=== PATIENT | male | born 1965 | race African-American/Black ===

== ENCOUNTER 2018-09-26 20:17 | Inpatient (IN) | payer SELFPAY ==
--- NOTE | 2018-09-27 03:06 | ED Physician Chart ---
ED Chief Complaint/HPI - Patient Information Date Seen:: 09/26/18 Time Seen:: 21:01 Chief Complaint:: colostomy bag off History of Present Illness:: patient is homeless. someone called an ambulance since his colostomy bag isoff. Allergies:: Allergies Allergy/AdvReac Type Severity Reaction Status Date / Time vancomycin Allergy Verified 09/26/18 20:30 Vitals:: Vital Signs - 8 hr 09/26/18 21:01 Temp 98.7 F HR 104 RR 18 BP 123/50 O2 Sat % 98 Historian:: Patient, EMS Review:: Nurse's Note Reviewed ED Review of Systems - Review of Systems General/Constitutional: No fever, No chills, No weight loss, No weakness, No diaphoresis, No edema, No loss of appetite Skin: No skin lesions, No rash, No bruising Head: No headache, No light-headedness Eyes: No loss of vision, No pain, No diplopia ENT: No earache, No nasal drainage, No sore throat, No tinnitus Neck: No neck pain, No swelling, No thyromegaly, No stiffness, No mass noted Cardio Vascular: No chest pain, No palpitations, No PND, No orthopnea, No edema Pulmonary: No SOB, No cough, No sputum, No wheezing GI: No nausea, No vomiting, No pain, No melena, No hematochezia, No constipation , No hematemesis, Other (colostomy bag is off) G/U: No dysuria, No frequency, No hematuria Musculoskeletal: No bone or joint pain, No back pain, No muscle pain Endocrine: No polyuria, No polydipsia Psychiatric: No prior psych history, No depression, No anxiety, No suicidal ideation Hematopoietic: No bruising, No lymphadenopathy Allergic/Immuno: No urticaria, No angioedema Neurological: No syncope, No focal symptoms, No weakness, No paresthesia, No headache, No seizure, No dizziness, No confusion, No vertigo ED Past Medical History - Past Medical History Obtainable: No Surgical History: other (multiple flaps to cover sacral decubitis. BLE amputations) Family Medical History - Family Member Mother History Unknown: Yes ED Physical Exam - Physical Examination General/Constitutional: Awake, Well-developed, well-nourished, Alert, No distress, Non-toxic appearing, Ambulatory Head: Atraumatic ENMT: External ears, nose nl Other ENMT comments:: edentulous Neck: Nontender, No nuchal rigidity, No stridor Respiratory: Nl effort/Exclusion, Clear to Auscultation, No Wheeze/Rhonchi/Rales Cardio Vascular: RRR, No murmur, gallop, rubs, NL S1 S2 Other Extremities comments:: right BLE amputation: necrotic skin present with slight serous discharge. LLE stump intact skin. Neuro/Psych: Alert/oriented Other Neuro/Psych comments:: patient appears to be tweaking on amphetamines. ED Assessment - Assessment General Assessment: patient is sleeping comfortably. did not allow us to draw blood from him. will attempt blood draw later on. sign out is given to Dr. Fortune at 7 a.m. who wanted me to admit the patient as a Vincent Joshi. According to admitting, this is not able to be done. The patient will remain in the ER until further notice. ED Septic Shock - . Is Septic Shock (SBP<90, OR Lactate>4 mmol\L) present?: No - <6hrs of presentation: Vital Signs: Vital Signs - 8 hr 09/26/18 21:01 Temp 98.7 F HR 104 RR 18 BP 123/50 O2 Sat % 98 ED Reassessment (Disposition) - Reassessment Reassessment Condition:: Improved - Diagnosis Diagnosis:: Diverting colostomy, bag intact after it fell off (s/p multiple decubitii). Urinary tract infection. Dehydration RLE stump wound with necrotic skin and serous discharge. Amphetamine usage. - Patient Disposition Condition at Disposition:: Stable, Improved
[2018-09-27] MEDS ORDERED: Lactated Ringer 1,000 ML IV ONE (03:38)
[2018-09-27 03:53] LABS: % EOSINOPHILS 5.3 % (0.0-5.0); % LYMPHOCYTES 18.5 % (20.0-50.0); % MONOCYTES 5.7 % (2.0-10.0); % NEUTROPHILS 70.5 % (40.0-80.0); EOSINOPHILE ABSOLUTE 0.4 Th/cmm (0.1-0.4); HEMATOCRIT 35.7 % (41.0-60); LYMPHOCYTE ABSOLUTE 1.4 Th/cmm (1.5-3.0); MEAN CELL VOLUME 84.7 fl (80-99); MEAN CORPUSCULAR HEMOGLOBIN 28.4 pg (26.0-30.0); MEAN CORPUSCULAR HGB CONC 33.5 pg (28.0-36.0); MEAN PLATELET VOLUME 8.9 fl; MONOCYTE ABSOLUTE 0.4 Th/cmm (0.3-1.0); NEUTROPHILE ABSOLUTE 5.6 Th/cmm (1.8-8.0); PLATELET COUNT 311 Th/cmm (150-400); RED BLOOD COUNT 4.22 Mil/cmm (4.30-5.70); RED CELL DISTRIBUTION WIDTH 14.9 % (11.5-20.0); WHITE BLOOD COUNT 7.8 Th/cmm (4.8-10.8)
[2018-09-27 04:07] LABS: URINE SOURCE CLEAN C
[2018-09-27 04:13] LABS: URINE BILIRUBIN NEGATIVE (NEGATIVE); URINE BLOOD TRACE (NEGATIVE); URINE GLUCOSE (UA) NEGATIVE (NEGATIVE); URINE KETONE NEGATIVE (NEGATIVE); URINE LEUKOCYTE ESTERASE SMALL (NEGATIVE); URINE MICROSCOPIC INDICATED? YES; URINE NITRATE NEGATIVE (NEGATIVE); URINE PROTEIN TRACE mg/dL (NEGATIVE); URINE UROBILINOGEN 0.2 E.U./dL (0.2 - 1.0)
[2018-09-27 04:22] LABS: AMPHETAMINE URINE POSITIVE (NEGATIVE); BARBITURATES URINE NEGATIVE (NEGATIVE); BENZODIAZEPINES QUAL URINE POSITIVE (NEGATIVE); CANNABINOID THC NEGATIVE (NEGATIVE); COCAINE METABOLITE QUAL URINE NEGATIVE (NEGATIVE); METHADONE URINE NEGATIVE (NEGATIVE); METHAMPHETAMINES QUAL URINE NEGATIVE (NEGATIVE); OPIATES (MORPHINE) QUAL. URINE NEGATIVE (NEGATIVE); PHENCYCLIDINE (PCP) URINE NEGATIVE (NEGATIVE); TRICYCLICS (TCA) QUAL. URINE NEGATIVE (NEGATIVE)
[2018-09-27 04:30] LABS: URINE COLOR STRAW
[2018-09-27 04:31] LABS: URINE CLARITY HAZY (CLEAR)
[2018-09-27 04:32] LABS: URINE RBC 0-2 /hpf (0-5)
[2018-09-27 04:33] LABS: ALB/GLOB RATIO 1.1 (1.0-1.8); ALBUMIN 3.7 gm/dL (4.2-5.5); ALKALINE PHOSPHATASE 83 U/L (34-104); ANION GAP 12.1 (7.0-16.0); BILIRUBIN,TOTAL 0.4 mg/dL (0.3-1.0); BUN - UREA NITROGEN 19 mg/dL (7-25); CALCIUM SERUM 9.4 mg/dL (8.6-10.3); CARBON DIOXIDE 27.7 mEq/L (21.0-31.0); CHLORIDE 107 mEq/L (98-107); CREATININE - SERUM 0.7 mg/dL (0.7-1.3); GFR AFRICAN-AMERICAN > 60.0 ml/min (>90); GFR NON AFRICAN-AMERICAN > 60.0 ml/min; GLUCOSE 121 mg/dL (70-105); MAGNESIUM 2.4 mg/dL (1.9-2.7); POTASSIUM SERUM 3.8 mEq/L (3.5-5.1); SGOT 12 U/L (13-39); SGPT/ALT 9 U/L (7-52); SODIUM SERUM 143 mEq/L (136-145); TOTAL PROTEIN,SERUM 7.1 gm/dL (6.0-8.3)
[2018-09-27 04:34] LABS: URINE EPITHELIAL CELLS FEW /lpf (FEW); URINE WBC >100 /hpf (0-5)
[2018-09-27 04:35] LABS: URINE BACTERIA 1+ /hpf (NONE SEEN)
[2018-09-27] MEDS ORDERED: Ciprofloxacin 400mg Premix PB 400 MG/200 ML BAG IV ONE ×2 (04:49→04:51)
[2018-09-27] MEDS ORDERED: Triple Antibiotic 0.94 gm Pkt TP STA (05:55)
[2018-09-27] MEDS ORDERED: Bacitracin pkt 1 gm Pkt TP ONE (05:58)
[2018-09-27] MEDS ORDERED: Triple Antibiotic 0.94 gm Pkt TP ONE (06:01)
[2018-09-27] MEDS ORDERED: Acetaminophen 500 MG TAB PO PRN (10:32)
--- NOTE | 2018-09-27 10:39 | History and Physical ---
History of Present Illness - HPI Chief Complaint: Colostomy bag off HPI: Yogesh called ambulance due that patient colostomy bag was off. During ER evaluation was found that he had an UTI, and dehydration. Vital Signs: Last Vital Signs Temp 98.0 F 09/27/18 08:48 Pulse 87 09/27/18 08:48 Resp 14 09/27/18 08:48 BP 111/73 09/27/18 08:48 Pulse Ox 95 09/27/18 08:48 Past Medical History Cardiovascular: Report: No Pertinent Hx Pulmonary: Report: No Pertinent Hx GI: Report: Other (Colostomy in place.) Psych: Report: Addictions, Other (Positive to amphetamines.) Musculoskeletal: Report: Weakness, Other (Bilateral leg amputation.) Infectious Disease: Report: No Pertinent Hx Renal/: Report: No Pertinent Hx Endocrine: Report: No Pertinent Hx Dermatology: Report: Other (Necrotic tissue in right leg stump.) - Past Surgical History Past Surgical History: Other (Colostomy placement.) Family Medical History - Family Member Mother History Unknown: Yes Social History Smoke: No Alcohol: Occassional Drugs: Crystal Meth Lives: Homeless Domestic Violence: Negative - Medications Home Medications: Home Medication Medication Instructions Recorded Type Baclofen [Baclofen*] 20 mg PO DAILY 09/26/18 History Oxybutynin Chloride [Oxybutynin 10 mg PO BID 09/26/18 History ER*] - Allergies Allergies/Adverse Reactions: Allergies Allergy/AdvReac Type Severity Reaction Status Date / Time vancomycin Allergy Verified 09/26/18 20:30 Review of Systems - Review of Systems Constitutional: Report: Weakness Eyes: Report: No Significant ENT: Report: No Significant Respiratory: Report: No Significant Cardiovascular: Report: No Significant Gastrointestinal: Report: No Significant Genitourinary: Report: No Significant Musculoskeletal: Report: No Significant Skin: Report: Rash Neurological: Report: Weakness Physical Exam - Physical Exam HEENT: Report: Ears Nose Throat within normal limits Neck: Report: Within normal limits Cardiovascular Systems: Report: Regular, Rate and Rhythm Respiratory: Report: Breath Sounds are within normal limits Abdomen: Report: Non-tender to palpation, Other (Colostomy bag in place.) Back: Report: Inspection of back is within normal limits. Extremities: Report: Other (Bilateral leg amputation) Skin: Report: No Rashes noted of the skin, Other (Necrotic tissue in right leg stump.) Neuro/Psych: Report: Disoriented to name time or place - Lab Results All Lab Results last 24 hours: Laboratory Results - last 24 hr 09/26/18 09/26/18 09/26/18 03:39 03:39 03:39 WBC 7.8 RBC 4.22 L Hgb 12.0 Hct 35.7 L MCV 84.7 MCH 28.4 MCHC Differential 33.5 RDW 14.9 Plt Count 311 MPV 8.9 Neutrophils % 70.5 Lymphocytes % 18.5 L Monocytes % 5.7 Eosinophils % 5.3 H Basophils % 0.0 Sodium 143 Potassium 3.8 Chloride 107 Carbon Dioxide 27.7 Anion Gap 12.1 BUN 19 Creatinine 0.7 Est GFR ( Amer) > 60.0 Est GFR (Non-Af Amer) > 60.0 BUN/Creatinine Ratio 27.1 Glucose 121 H Whole Bld Lactic Acid Calcium 9.4 Phosphorus 4.0 Magnesium 2.4 Total Bilirubin 0.4 AST 12 L ALT 9 Alkaline Phosphatase 83 Total Protein 7.1 Albumin 3.7 L Globulin 3.4 Albumin/Globulin Ratio 1.1 TSH 0.20 L Urine Source Urine Color Urine Clarity Urine pH Ur Specific [place] Urine Protein Urine Glucose (UA) Urine Ketones Urine Blood Urine Nitrate Urine Bilirubin Urine Urobilinogen Ur Leukocyte Esterase Urine RBC Urine WBC Ur Epithelial Cells Urine Bacteria Urine Opiates Screen Urine Methadone Screen Ur Barbiturates Screen Ur Tricyclics Screen Ur Phencyclidine Scrn Amphetamines Screen U Methamphetamines Scrn U Benzodiazepines Scrn U Cocaine Metab Screen U Cannabinoids Screen Ethyl Alcohol < 10 09/26/18 09/27/18 09/27/18 03:39 03:50 03:50 WBC RBC Hgb Hct MCV MCH MCHC Differential RDW Plt Count MPV Neutrophils % Lymphocytes % Monocytes % Eosinophils % Basophils % Sodium Potassium Chloride Carbon Dioxide Anion Gap BUN Creatinine Est GFR ( Amer) Est GFR (Non-Af Amer) BUN/Creatinine Ratio Glucose Whole Bld Lactic Acid 0.60 Calcium Phosphorus Magnesium Total Bilirubin AST ALT Alkaline Phosphatase Total Protein Albumin Globulin Albumin/Globulin Ratio TSH Urine Source CLEAN C Urine Color STRAW Urine Clarity HAZY Urine pH 6.0 Ur Specific [place] >= 1.030 Urine Protein TRACE Urine Glucose (UA) NEGATIVE Urine Ketones NEGATIVE Urine Blood TRACE Urine Nitrate NEGATIVE Urine Bilirubin NEGATIVE Urine Urobilinogen 0.2 Ur Leukocyte Esterase SMALL H Urine RBC 0-2 H Urine WBC >100 H Ur Epithelial Cells FEW Urine Bacteria 1+ H Urine Opiates Screen NEGATIVE Urine Methadone Screen NEGATIVE Ur Barbiturates Screen NEGATIVE Ur Tricyclics Screen NEGATIVE Ur Phencyclidine Scrn NEGATIVE Amphetamines Screen POSITIVE H U Methamphetamines Scrn NEGATIVE U Benzodiazepines Scrn POSITIVE H U Cocaine Metab Screen NEGATIVE U Cannabinoids Screen NEGATIVE Ethyl Alcohol - Assessment Assessment: Patient is sleeping but arousable in no acute distress. Dx: Colostomy bag off, already in place, UTI, Dehydration, Amphetamine use, Necrotic tissue in right leg stump. - Plan Plan: Colostomy bag in plave, on IV NS, IV AB, Pain control, regular diet. Will continue to monitor.
[2018-09-27] MEDS ORDERED: Sodium Chloride 0.9% 1,000 ML IV SCH ×2 (10:45→12:41)
[2018-09-27] MEDS ORDERED: Ciprofloxacin 200mg Premix PB 200 MG/100 ML BAG IV SCH (12:41)
[2018-09-27] MEDS: Pneumococcal Vaccine 0.5 mL Vial IM ONE ×2 (13:09→13:13)
[2018-09-27] MEDS ORDERED: Levofloxacin 500mg/100mL 500 MG/100 ML BAG IV SCH (16:00)
--- NOTE | 2018-09-27 19:02 | Consultation ---
DATE OF CONSULTATION: 09/27/2018 REQUESTING PHYSICIAN: Dr. Yahir Haas. REASON FOR CONSULTATION: History of substance abuse. HISTORY OF PRESENT ILLNESS: This patient is a 53-year-old -[place]ong[place] male. He admitted here on a voluntary basis after someone found his colostomy bag is out. The patient is reported to have UTI and has been dehydrated and is admitted to the medical floor for stabilization. The patient is reported to have been using methamphetamine and a psychiatric consultation is called to address the issue. Staff was spoken to. The patient is interviewed. The patient is not cooperative and is not providing any information. The patient has been mumbling to himself. The patient; however, has been stating that he has been in his wheelchair and has no place to go. The patient's urine drug screen is noted to be positive for methamphetamine at the time of the evaluation. The patient is not providing much of information. The patient is denying any suicidal or homicidal ideation and is also not coming with any prior psychiatric hospitalizations or treatments. PAST PSYCHIATRIC HISTORY: Details are not known. MEDICAL HISTORY: Significant for the patient has colostomy bag. SUBSTANCE ABUSE HISTORY: The patient's urine drug screen is positive for amphetamines. LEGAL PROBLEMS: None at this time. SOCIAL HISTORY: The patient is reporting that he is homeless. STRENGTHS AND ASSETS: The patient is motivated. MENTAL STATUS EXAMINATION: The patient is a 53-year-old, looking his stated age, superficially cooperative. Eye contact is poor. Mood is noted to be irritable. Affect is constricted. Insight and judgment at this time are noted to be impaired. The patient is not providing much of information at this time. The patient has been mumbling to self. The patient at this time is not presenting as a threat to self or others. DIAGNOSTIC IMPRESSION: AXIS I: A: Methamphetamine abuse. B: Depressive disorder, not otherwise specified. PLAN: To closely monitor the patient. I encouraged the patient to verbalize the concerns rather than to act out. The patient is going to be provided with supportive psychotherapy. Once the patient is stabilized. The patient is going to be discharged to [facility] to be followed up on an outpatient basis. JOB# [id number]
[2018-09-28 08:42] LABS: ALBUMIN 3.3 gm/dL (4.2-5.5); ALKALINE PHOSPHATASE 68 U/L (34-104); ANION GAP 10.8 (7.0-16.0); BILIRUBIN,TOTAL 0.4 mg/dL (0.3-1.0); BUN - UREA NITROGEN 15 mg/dL (7-25); CALCIUM SERUM 9.4 mg/dL (8.6-10.3); CARBON DIOXIDE 24.3 mEq/L (21.0-31.0); CHLORIDE 106 mEq/L (98-107); CREATININE - SERUM 0.5 mg/dL (0.7-1.3); GFR AFRICAN-AMERICAN > 60.0 ml/min (>90); GFR NON AFRICAN-AMERICAN > 60.0 ml/min; GLUCOSE 105 mg/dL (70-105); POTASSIUM SERUM 4.1 mEq/L (3.5-5.1); SGOT 10 U/L (13-39); SGPT/ALT 7 U/L (7-52); SODIUM SERUM 137 mEq/L (136-145); TOTAL PROTEIN,SERUM 6.5 gm/dL (6.0-8.3)
--- NOTE | 2018-09-28 18:14 | Discharge Summary ---
DATE OF DISCHARGE: 09/28/2018 ADMITTING DIAGNOSES: 1. Displaced colostomy bag. 2. Dehydration. 3. Urinary tract infection. SECONDARY DIAGNOSES: Includes, 1. Substance abuse. 2. Homeless. 3. History of bilateral lower extremity amputations. 4. History of multiple flaps to cover sacral decubitus ulcer. DISCHARGE DIAGNOSES: 1. Displaced colostomy bag, status post replacement. 2. Dehydration, status post intravenous fluids. 3. Urinary tract infection, status post treatment with intravenous antibiotics. CONSULTANTS: There were no consultants used during this admission. MAJOR PROCEDURES: There were no major procedures done during this admission. BRIEF HOSPITAL COURSE: A 53-year-old -[place] male who was brought in someone call an ambulance since his colostomy was apparently off his abdominal area. In the ER, he was noted to be tachycardic at 104, and UA was consistent with UTI. He also appeared clinically dry and therefore he was admitted and placed on IV fluids, IV antibiotics and his colostomy bag was able to be replaced by ER staff. The patient's vital signs have remained stable throughout his hospital stay with no noticeable changes in his temperature and no fevers. His labs have also remained stable. He has been somewhat noncompliant with medical staff, but appears to be overall stable. Blood cultures drawn on admission have been negative. DISCHARGE MEDICATIONS: Levaquin 500 mg every day x7 days, baclofen 20 mg every day, oxybutynin ER 10 mg b.i.d. CONDITION ON DISCHARGE: Stable. Prior to discharge the patient was seen by mental health social worker who provided the patient with shelters. [facility]# [id number]
== END 2018-09-28 15:30 | disposition home or self-care (01) | DRG 394 ==
LOC: ER 20:17 → MSI 09-27 08:45
PROVIDERS: ADMIT Internal Medicine; ATTEND Internal Medicine
DX: K94.03 Colostomy malfunction (principal); N39.0 Urinary tract infection, site not specified; F15.19 Other stimulant abuse with unspecified stimulant-induced disorder; F32.9 Major depressive disorder, single episode, unspecified; E86.0 Dehydration; Y83.3 Surgical operation with formation of external stoma as the cause of abnormal reaction of the patient, or of later complication, without mention of misadventure at the time of the procedure; Y92.89 Other specified places as the place of occurrence of the external cause; Z89.512 Acquired absence of left leg below knee; Z89.511 Acquired absence of right leg below knee; Z59.0 Homelessness; Z88.1 Allergy status to other antibiotic agents
CPT/HCPCS: 36415-UA; 80053-TC; 80307; 80320-TC; 81001-TC; 83605; 83735-TC; 84100-TC; 84443-TC; 85025-TC; 87086-90; 90732; 96375; J0744; J1200; J1956; J2060; J7030; Z7610